=== PATIENT | male | born 1995 | race Caucasian/White ===

== ENCOUNTER 2021-12-26 09:00 | Outpatient (RCR) | payer OTHER, MEDICAID, SELFPAY ==
--- NOTE | 2021-11-03 09:44 | PT.OIE ---
Current Diagnoses Patellofemoral disorders, right knee (11/03/21) Patellofemoral disorders, left knee (11/03/21) Past Medical History (Last Updated 10/07/21 @ 21:12 by Laxmi Brito) Disorder of right temporomandibular joint History of tonsillectomy and adenoidectomy (~2001) Patellofemoral arthralgia of both knees Pilonidal cyst without infection Scoliosis (~2015) Tinnitus (~2016) [place] teeth removed (~2016) Past Surgical History (Last Updated 10/02/21 @ 20:17 by Laxmi Brito) Anesthesia History of tonsillectomy and adenoidectomy (~2001) [place] teeth removed (~2015) Visit Care Team Role Provider Type Wilbur Simons DO Attending Provider Physician Family Provider Primary Care Provider Referring Provider Specialty: Family Practice Address: [address] [place] [address] Email: Physical Therapy Initial Evaluation PT-OP-A Visit Information Start: 10/31/21 10:50 Freq: Status: Active Protocol: Document 11/03/21 13:00 AMB (Rec: 11/04/21 07:57 AMB [id number]) Out-Patient Physical Therapy Visit Information Visit Information Visit Type Treatment Note Visit Start Time 13:00 Visit Stop Time 13:45 Total Visit Minutes 45 Visit Number 1 PT-OP-B Current Condition Start: 10/31/21 10:50 Freq: Status: Active Protocol: Document 11/03/21 12:58 AMB (Rec: 11/03/21 13:50 AMB [id number]) Current Condition History of Current Condition Onset Date Last January Current Complaints Bilateral knee pain especially with sitting History of Current Condition Went on a camping trip last January and did a lot of walking, felt ok then, but when got home and was sitting the pain started. 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 Was hurting in the shins and knees, now just really knees over the knee caps. Pain with walking and sitting and driving. Has noticed popping with squatting and tries to avoid it. Denies pain with kneeling. Does have a history of scoliosis with S curve 14 and 18 degrees per pt report. Prior Functional Status Baseline Function- ADL's Independent Baseline Function- Mobility Independent Current Functional Impairments (Reported) Functional Limitations- ADL's Difficulty sitting, avoids squating/ lots of walking/ stairs due to pain Personal Factors Other Personal Factors That May Effect Scoliosis, lots of sitting in Therapy/Recovery home office PT-OP-C Subjective Start: 10/31/21 10:50 Freq: Status: Active Protocol: Document 11/03/21 13:00 AMB (Rec: 11/04/21 09:08 AMB [id number]) OP-PT Pain Assessment Comments Pain Comments 3-4/10 pain fairly constant, worst with sitting PT-OP-G Mobility & Gait Start: 10/31/21 10:50 Freq: Status: Active Protocol: Document 11/03/21 13:00 AMB (Rec: 11/04/21 09:08 AMB [id number]) OP Mobility Evaluation Functional Movements Squats fatigues quickly, cues for form PT-OP-K Range of Motion Start: 10/31/21 10:50 Freq: Status: Active Protocol: Document 11/03/21 13:00 AMB (Rec: 11/04/21 09:08 AMB [id number]) Knee Goniometric Range of Motion Knee Left Knee ROM WFL Yes Comments good AROM bilaterally PT-OP-L Special Tests Start: 10/31/21 10:50 Freq: Status: Active Protocol: Document 11/03/21 13:00 AMB (Rec: 11/04/21 09:08 AMB [id number]) Special Tests Knee Special Tests Patellar Grind Test Test Results - PT-OP-M Strength Start: 10/31/21 10:50 Freq: Status: Active Protocol: Document 11/03/21 13:00 AMB (Rec: 11/04/21 09:08 AMB [id number]) Hip Strength Hip Manual Muscle Testing Left Flexion (L2) 4+ Good+ Extension (S1) 4 Good Abduction 4+ Good+ Right Flexion (L2) 4+ Good+ Extension (S1) 4 Good Abduction 4+ Good+ Knee Strength Knee Manual Muscle Testing Right Flexion (S2) 5 Normal Extension (L3) 4+ Good+ Left Flexion (S2) 5 Normal Extension (L3) 4+ Good+ PT-OP-T Assessment and Plan Start: 10/31/21 10:50 Freq: Status: Active Protocol: Document 11/03/21 13:00 AMB (Rec: 11/04/21 09:41 AMB [id number]) Physical Therapy Assessment Evaluation Complexity Number of Personal Factors/Comorbidities 1-2 Number of Body Systems Impaired 4 or More Clinical Presentation at Evaluation Stable Impairments Impairments Activity Tolerance,Functional Activities,Pain,Strength Goals Two Impairment Activity tolerance Short Term Goal (STG) Rodney will sit at his desk with good ergonomics for 1 hour without knee pain. STG Duration 4 weeks Assisted Goal (LTG) Rodney will ascend and descend a flight of stairs without knee pain. LTG Duration 8 weeks One Impairment Pain Short Term Goal (STG) Rodney will perform a full squat without knee pain. STG Duration 4 weeks Assisted Goal (LTG) Rodney will be independent with a strengthening HEP that does not flare his pain. LTG Duration 8 weeks Assessment Summary Assessment Rodney attends physical therapy with bilateral knee pain centered over his patella. We spent a good amount of time discussing the ergonomic setup of his home office, considering that his worst pain is with sitting and he sits a lot for school. His range of motion was good, but he would benefit from quad and hip extensor strengthening, as well as instruction in a core stability program so that he can sit, squat, and hike without an increase in knee pain. Physical Therapy Plan Frequency and Duration Frequency of Treatment 2x/Week Duration of Treatment 8 weeks Plan of Care Start Date 11/03/21 Plan of Care End Date 12/30/21 Therapeutic Interventions Therapeutic Interventions Gait Training,Manual Therapy, Neuromuscular Re-education, Self-Care/Home Management,Soft Tissue Mobilization,Taping, Therapeutic Activities, Therapeutic Exercises Modalities Cold Pack/Ice Massage,Electric Stimulation,Hot Packs Next Visit Focus/Plan Next Note Type Treatment Note Next Visit Plan Work on squat form, hip abductor and quad strength
--- NOTE | 2021-11-03 16:00 | PT.OPPOC ---
Physical, Occupational & Speech Therapy At [facility] Current Diagnoses Patellofemoral disorders, right knee (11/03/21) Patellofemoral disorders, left knee (11/03/21) Visit Care Team Role Provider Type Wilbur Simons DO Attending Provider Physician Family Provider Primary Care Provider Referring Provider Specialty: Family Practice Address: [address] [place] [address], [facility] Email: Plan Of Care PT-OP-T Assessment and Plan Start: 10/31/21 10:50 Freq: Status: Active Protocol: Document 11/03/21 13:00 AMB (Rec: 11/04/21 09:41 AMB [id number]) Physical Therapy Assessment Evaluation Complexity Number of Personal Factors/Comorbidities 1-2 Number of Body Systems Impaired 4 or More Clinical Presentation at Evaluation Stable Impairments Impairments Activity Tolerance,Functional Activities,Pain,Strength Goals Two Impairment Activity tolerance Short Term Goal (STG) Rodney will sit at his desk with good ergonomics for 1 hour without knee pain. STG Duration 4 weeks Mcc Goal (LTG) Rodney will ascend and descend a flight of stairs without knee pain. LTG Duration 8 weeks One Impairment Pain Short Term Goal (STG) Rodney will perform a full squat without knee pain. STG Duration 4 weeks Traffic Control Supervisor Goal (LTG) Rodney will be independent with a strengthening HEP that does not flare his pain. LTG Duration 8 weeks Assessment Summary Assessment Rodney attends physical therapy with bilateral knee pain centered over his patella. We spent a good amount of time discussing the ergonomic setup of his home office, considering that his worst pain is with sitting and he sits a lot for school. His range of motion was good, but he would benefit from quad and hip extensor strengthening, as well as instruction in a core stability program so that he can sit, squat, and hike without an increase in knee pain. Physical Therapy Plan Frequency and Duration Frequency of Treatment 2x/Week Duration of Treatment 8 weeks Plan of Care Start Date 11/03/21 Plan of Care End Date 12/30/21 Therapeutic Interventions Therapeutic Interventions Gait Training,Manual Therapy, Neuromuscular Re-education, Self-Care/Home Management,Soft Tissue Mobilization,Taping, Therapeutic Activities, Therapeutic Exercises Modalities Cold Pack/Ice Massage,Electric Stimulation,Hot Packs Next Visit Focus/Plan Next Note Type Treatment Note Next Visit Plan Work on squat form, hip abductor and quad strength Plan of Care Dates Plan of Care Start Date 11/03/21 Plan of Care End Date 12/30/21 Electronically Signed by: Lynette Jane, PT 11/04/21 0945 Please Sign and Return: I have reviewed this Plan of Care and certify that the skilled therapy services above are required to meet the patient?s needs. Physician Signature Date Printed Name and Credentials Clinical Instructor Signature Printed Name and Credentials
--- NOTE | 2021-11-07 15:57 | PT.OTN ---
Current Diagnoses Patellofemoral disorders, right knee (11/07/21) Patellofemoral disorders, left knee (11/07/21) Physical Therapy Treatment Note PT-OP-A Visit Information Start: 10/31/21 10:50 Freq: Status: Active Protocol: Document 11/07/21 09:48 AMB (Rec: 11/07/21 10:33 AMB [id number]) Out-Patient Physical Therapy Visit Information Visit Information Visit Type Treatment Note Visit Start Time 09:45 Visit Stop Time 10:30 Total Visit Minutes 45 Visit Number 2 PT-OP-B Current Condition Start: 10/31/21 10:50 Freq: Status: Active Protocol: Document 11/03/21 12:58 AMB (Rec: 11/03/21 13:50 AMB [id number]) Current Condition History of Current Condition Onset Date Last January Current Complaints Bilateral knee pain especially with sitting History of Current Condition Went on a camping trip last January and did a lot of walking, felt ok then, but when got home and was sitting the pain started. 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 Was hurting in the shins and knees, now just really knees over the knee caps. Pain with walking and sitting and driving. Has noticed popping with squatting and tries to avoid it. Denies pain with kneeling. Does have a history of scoliosis with S curve 14 and 18 degrees per pt report. Prior Functional Status Baseline Function- ADL's Independent Baseline Function- Mobility Independent Current Functional Impairments (Reported) Functional Limitations- ADL's Difficulty sitting, avoids squating/ lots of walking/ stairs due to pain Personal Factors Other Personal Factors That May Effect Scoliosis, lots of sitting in Therapy/Recovery home office PT-OP-C Subjective Start: 10/31/21 10:50 Freq: Status: Active Protocol: Document 11/07/21 09:48 AMB (Rec: 11/07/21 10:33 AMB [id number]) OP-PT Subjective Patient Comments Patient Comments I've done exercises last 2 days, noticing pain with sitting, no pain with exercises. PT-OP-G Mobility & Gait Start: 10/31/21 10:50 Freq: Status: Active Protocol: Document 11/03/21 13:00 AMB (Rec: 11/04/21 09:08 AMB [id number]) OP Mobility Evaluation Functional Movements Squats fatigues quickly, cues for form PT-OP-K Range of Motion Start: 10/31/21 10:50 Freq: Status: Active Protocol: Document 11/03/21 13:00 AMB (Rec: 11/04/21 09:08 AMB [id number]) Knee Goniometric Range of Motion Knee Left Knee ROM WFL Yes Comments good AROM bilaterally PT-OP-L Special Tests Start: 10/31/21 10:50 Freq: Status: Active Protocol: Document 11/03/21 13:00 AMB (Rec: 11/04/21 09:08 AMB [id number]) Special Tests Knee Special Tests Patellar Grind Test Test Results - PT-OP-M Strength Start: 10/31/21 10:50 Freq: Status: Active Protocol: Document 11/03/21 13:00 AMB (Rec: 11/04/21 09:08 AMB [id number]) Hip Strength Hip Manual Muscle Testing Left Flexion (L2) 4+ Good+ Extension (S1) 4 Good Abduction 4+ Good+ Right Flexion (L2) 4+ Good+ Extension (S1) 4 Good Abduction 4+ Good+ Knee Strength Knee Manual Muscle Testing Right Flexion (S2) 5 Normal Extension (L3) 4+ Good+ Left Flexion (S2) 5 Normal Extension (L3) 4+ Good+ PT-OP-Q Treatments Start: 10/31/21 10:50 Freq: Status: Active Protocol: Document 11/07/21 09:48 AMB (Rec: 11/07/21 10:33 AMB [id number]) Cardio Equipment Recumbent Bicycle Duration (Minutes) 5 Resistance 5 Gym Equipment Shuttle Recovery Bilateral Squats Resistance 50 Shuttle Recovery Platform Stable Therapeutic Exercises Supine Exercises 1 Supine Exercise Name SLR cue TA Reps/Minutes 2x10 Comments challenging IT band stretch Reps/Minutes 30x2 Comments with band Standing Exercises 1 Standing Exercise Name wall squat/squat Comments vc form- small range Other Exercises 1 Other Exercise Name quadruped LE ext Reps/Minutes 2x10 Comments cue even pelvis Manual Therapy Treatment Joint Mobilizations 1 Joint patellofemoral Direction III Body Position Supine Taping 1 Body Location bilateral knees Treatment Focus 2 I strips from lateral pulling medial superior and distal to patella Type of Tape Kinesio Tape PT-OP-T Assessment and Plan Start: 10/31/21 10:50 Freq: Status: Active Protocol: Document 11/07/21 09:48 AMB (Rec: 11/07/21 10:33 CORY [id number]) Physical Therapy Assessment Assessment Summary Assessment Rodney did well with ther ex today, fatigues quickly. Will benefit from continued quad/ glute strengthening. Physical Therapy Plan Next Visit Focus/Plan Next Note Type Treatment Note Next Visit Plan Follow up on k tape, SLR, and quad hip ext
--- NOTE | 2021-11-11 14:20 | PT.OTN ---
Current Diagnoses Patellofemoral disorders, right knee (11/11/21) Patellofemoral disorders, left knee (11/11/21) Physical Therapy Treatment Note PT-OP-A Visit Information Start: 10/31/21 10:50 Freq: Status: Active Protocol: Document 11/11/21 09:00 AMB (Rec: 11/11/21 09:47 AMB [id number]) Out-Patient Physical Therapy Visit Information Visit Information Visit Type Treatment Note Visit Start Time 09:00 Visit Stop Time 09:45 Total Visit Minutes 45 Visit Number 3 PT-OP-B Current Condition Start: 10/31/21 10:50 Freq: Status: Active Protocol: Document 11/03/21 12:58 AMB (Rec: 11/03/21 13:50 AMB [id number]) Current Condition History of Current Condition Onset Date Last January Current Complaints Bilateral knee pain especially with sitting History of Current Condition Went on a camping trip last January and did a lot of walking, felt ok then, but when got home and was sitting the pain started. 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 Was hurting in the shins and knees, now just really knees over the knee caps. Pain with walking and sitting and driving. Has noticed popping with squatting and tries to avoid it. Denies pain with kneeling. Does have a history of scoliosis with S curve 14 and 18 degrees per pt report. Prior Functional Status Baseline Function- ADL's Independent Baseline Function- Mobility Independent Current Functional Impairments (Reported) Functional Limitations- ADL's Difficulty sitting, avoids squating/ lots of walking/ stairs due to pain Personal Factors Other Personal Factors That May Effect Scoliosis, lots of sitting in Therapy/Recovery home office PT-OP-C Subjective Start: 10/31/21 10:50 Freq: Status: Active Protocol: Document 11/11/21 09:00 AMB (Rec: 11/11/21 09:47 AMB [id number]) OP-PT Subjective Patient Comments Patient Comments Didn't have a chance to do exercises over the weekend, tape seemed to help but PT-OP-G Mobility & Gait Start: 10/31/21 10:50 Freq: Status: Active Protocol: Document 11/03/21 13:00 AMB (Rec: 11/04/21 09:08 AMB [id number]) OP Mobility Evaluation Functional Movements Squats fatigues quickly, cues for form PT-OP-K Range of Motion Start: 10/31/21 10:50 Freq: Status: Active Protocol: Document 11/03/21 13:00 AMB (Rec: 11/04/21 09:08 AMB [id number]) Knee Goniometric Range of Motion Knee Left Knee ROM WFL Yes Comments good AROM bilaterally PT-OP-L Special Tests Start: 10/31/21 10:50 Freq: Status: Active Protocol: Document 11/03/21 13:00 AMB (Rec: 11/04/21 09:08 AMB [id number]) Special Tests Knee Special Tests Patellar Grind Test Test Results - PT-OP-M Strength Start: 10/31/21 10:50 Freq: Status: Active Protocol: Document 11/03/21 13:00 AMB (Rec: 11/04/21 09:08 AMB [id number]) Hip Strength Hip Manual Muscle Testing Left Flexion (L2) 4+ Good+ Extension (S1) 4 Good Abduction 4+ Good+ Right Flexion (L2) 4+ Good+ Extension (S1) 4 Good Abduction 4+ Good+ Knee Strength Knee Manual Muscle Testing Right Flexion (S2) 5 Normal Extension (L3) 4+ Good+ Left Flexion (S2) 5 Normal Extension (L3) 4+ Good+ PT-OP-Q Treatments Start: 10/31/21 10:50 Freq: Status: Active Protocol: Document 11/11/21 09:00 AMB (Rec: 11/11/21 09:47 AMB [id number]) Cardio Equipment Bicycle (Upright) Duration (Minutes) 7 Resistance 4 Seat Position 8 Therapeutic Exercises Supine Exercises november Supine Exercise Name 90-90 with TA Comments pt felt popping in R hip 1 Supine Exercise Name SLR cue TA Reps/Minutes 2x10 Comments challenging IT band stretch Reps/Minutes 30x2 Comments with band Sidelying Exercises 1 Sidelying Exercise Name hip abductor SLR Reps/Minutes 2x10 Standing Exercises 2 Standing Exercise Name hip flexor stretch Comments hard for pt to feel 1 Standing Exercise Name wall squat/squat Reps/Minutes 15x3 Comments vc form- small range Manual Therapy Treatment Other Other Manual Treatments rolling with foam roll and rolling pin on IT band PT-OP-T Assessment and Plan Start: 10/31/21 10:50 Freq: Status: Active Protocol: Document 11/11/21 09:00 AMB (Rec: 11/11/21 09:47 [facility] [id number]) Physical Therapy Assessment Goals Two Impairment Activity tolerance Short Term Goal (STG) Rodney will sit at his desk with good ergonomics for 1 hour without knee pain. STG Duration 4 weeks Detention Goal (LTG) Rodney will ascend and descend a flight of stairs without knee pain. LTG Duration 8 weeks One Impairment Pain Short Term Goal (STG) Rodney will perform a full squat without knee pain. STG Duration 4 weeks Ocular Care Aide Goal (LTG) Rodney will be independent with a strengthening HEP that does not flare his pain. LTG Duration 8 weeks Assessment Summary Assessment Will not continue with K tape per pt's request due to pain with removal of tape re hairy legs. Will continue to instruct in HEP with focusing on hip/knee strengthening with IT band stretching/rolling. Physical Therapy Plan Next Visit Focus/Plan Next Note Type Treatment Note Next Visit Plan Follow up on tolerance to HEP, progress quad/ hip abductor and extensor strengthening as tolerated.
--- NOTE | 2021-11-14 10:31 | PT.OTN ---
Current Diagnoses Patellofemoral disorders, right knee (11/14/21) Patellofemoral disorders, left knee (11/14/21) Physical Therapy Treatment Note PT-OP-A Visit Information Start: 10/31/21 10:50 Freq: Status: Active Protocol: Document 11/14/21 09:50 [place] (Rec: 11/14/21 10:31 MA [id number]) Out-Patient Physical Therapy Visit Information Visit Information Visit Type Treatment Note Visit Start Time 09:50 Visit Stop Time 10:30 Total Visit Minutes 40 Visit Number 4 Number of MILITARY SCIENCE TEACHER Visits 1 PT-OP-B Current Condition Start: 10/31/21 10:50 Freq: Status: Active Protocol: Document 11/03/21 12:58 AMB (Rec: 11/03/21 13:50 AMB [id number]) Current Condition History of Current Condition Onset Date Last January Current Complaints Bilateral knee pain especially with sitting History of Current Condition Went on a camping trip last January and did a lot of walking, felt ok then, but when got home and was sitting the pain started. 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 Was hurting in the shins and knees, now just really knees over the knee caps. Pain with walking and sitting and driving. Has noticed popping with squatting and tries to avoid it. Denies pain with kneeling. Does have a history of scoliosis with S curve 14 and 18 degrees per pt report. Prior Functional Status Baseline Function- ADL's Independent Baseline Function- Mobility Independent Current Functional Impairments (Reported) Functional Limitations- ADL's Difficulty sitting, avoids squating/ lots of walking/ stairs due to pain Personal Factors Other Personal Factors That May Effect Scoliosis, lots of sitting in Therapy/Recovery home office PT-OP-C Subjective Start: 10/31/21 10:50 Freq: Status: Active Protocol: Document 11/14/21 09:50 MA (Rec: 11/14/21 10:31 MA [id number]) OP-PT Subjective Patient Comments Patient Comments Pt feels his knees have improved since starting his HEP. Patient Reported Progress Improving PT-OP-G Mobility & Gait Start: 10/31/21 10:50 Freq: Status: Active Protocol: Document 11/03/21 13:00 AMB (Rec: 11/04/21 09:08 AMB [id number]) OP Mobility Evaluation Functional Movements Squats fatigues quickly, cues for form PT-OP-K Range of Motion Start: 10/31/21 10:50 Freq: Status: Active Protocol: Document 11/03/21 13:00 AMB (Rec: 11/04/21 09:08 AMB [id number]) Knee Goniometric Range of Motion Knee Left Knee ROM WFL Yes Comments good AROM bilaterally PT-OP-L Special Tests Start: 10/31/21 10:50 Freq: Status: Active Protocol: Document 11/03/21 13:00 AMB (Rec: 11/04/21 09:08 AMB [id number]) Special Tests Knee Special Tests Patellar Grind Test Test Results - PT-OP-M Strength Start: 10/31/21 10:50 Freq: Status: Active Protocol: Document 11/03/21 13:00 AMB (Rec: 11/04/21 09:08 AMB [id number]) Hip Strength Hip Manual Muscle Testing Left Flexion (L2) 4+ Good+ Extension (S1) 4 Good Abduction 4+ Good+ Right Flexion (L2) 4+ Good+ Extension (S1) 4 Good Abduction 4+ Good+ Knee Strength Knee Manual Muscle Testing Right Flexion (S2) 5 Normal Extension (L3) 4+ Good+ Left Flexion (S2) 5 Normal Extension (L3) 4+ Good+ PT-OP-Q Treatments Start: 10/31/21 10:50 Freq: Status: Active Protocol: Document 11/14/21 09:50 MA (Rec: 11/14/21 10:31 MA [id number]) Cardio Equipment Bicycle (Upright) Duration (Minutes) 7 Resistance 4 Seat Position 8 Therapeutic Exercises Supine Exercises 1 Supine Exercise Name SLR cue TA Reps/Minutes 2x10 Comments challenging IT band stretch Reps/Minutes 30x2 Comments with band Standing Exercises 3 Standing Exercise Name 1. hip abd 2. hip ext Side bilateral Resistance red loop Reps/Minutes 2x10 ea 2 Standing Exercise Name hip flexor stretch- 1. lunge stretch 2. pulling foot to glute Comments hard for pt to feel 1 Standing Exercise Name squats holding ballet bar Reps/Minutes 15x3 Comments vc form- small range Other Exercises Foam Roller Other Exercise Name 1. Quads 2. ITB 3. calves 4. HS Side bilateral Equipment Used foam roller Reps/Minutes 5' 1 Other Exercise Name quadruped LE ext Reps/Minutes 2x10 Comments cue even pelvis PT-OP-T Assessment and Plan Start: 10/31/21 10:50 Freq: Status: Active Protocol: Document 11/14/21 09:50 MA (Rec: 11/14/21 10:31 MA [id number]) Physical Therapy Assessment Goals Two Impairment Activity tolerance Short Term Goal (STG) Rodney will sit at his desk with good ergonomics for 1 hour without knee pain. STG Duration 4 weeks Half-Way Goal (LTG) Rodney will ascend and descend a flight of stairs without knee pain. LTG Duration 8 weeks One Impairment Pain Short Term Goal (STG) Rodney will perform a full squat without knee pain. STG Duration 4 weeks Half-Way Goal (LTG) Rodney will be independent with a strengthening HEP that does not flare his pain. LTG Duration 8 weeks Assessment Summary Assessment Progressed to standing resisted exercises this session for strengthening LEs/ hips bilaterally. Pt required minor cues to avoid ER LEs during standing hip extension. Added to HEP foam rolling ITB and quads bilaterally and a standing quad stretch. Physical Therapy Plan Frequency and Duration Frequency of Treatment 2x/Week Duration of Treatment 8 weeks Plan of Care Start Date 11/03/21 Plan of Care End Date 12/30/21 Therapeutic Interventions Therapeutic Interventions Gait Training,Manual Therapy, Neuromuscular Re-education, Self-Care/Home Management,Soft Tissue Mobilization,Taping, Therapeutic Activities, Therapeutic Exercises Modalities Cold Pack/Ice Massage,Electric Stimulation,Hot Packs Next Visit Focus/Plan Next Note Type Treatment Note Next Visit Plan Perform more standing resisted quad/ hip abductor and extensor strengthening as tolerated.
--- NOTE | 2021-11-21 11:19 | PT.OTN ---
Current Diagnoses Patellofemoral disorders, right knee (11/21/21) Patellofemoral disorders, left knee (11/21/21) Physical Therapy Treatment Note PT-OP-A Visit Information Start: 10/31/21 10:50 Freq: Status: Active Protocol: Document 11/21/21 10:22 MA (Rec: 11/21/21 11:19 MA [id number]) Out-Patient Physical Therapy Visit Information Visit Information Visit Type Treatment Note Visit Start Time 10:30 Visit Stop Time 11:12 Total Visit Minutes 42 Visit Number 5 Number of CUPOLA MELTER HELPER Visits 2 PT-OP-B Current Condition Start: 10/31/21 10:50 Freq: Status: Active Protocol: Document 11/03/21 12:58 AMB (Rec: 11/03/21 13:50 AMB [id number]) Current Condition History of Current Condition Onset Date Last January Current Complaints Bilateral knee pain especially with sitting History of Current Condition Went on a camping trip last January and did a lot of walking, felt ok then, but when got home and was sitting the pain started. 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 Was hurting in the shins and knees, now just really knees over the knee caps. Pain with walking and sitting and driving. Has noticed popping with squatting and tries to avoid it. Denies pain with kneeling. Does have a history of scoliosis with S curve 14 and 18 degrees per pt report. Prior Functional Status Baseline Function- ADL's Independent Baseline Function- Mobility Independent Current Functional Impairments (Reported) Functional Limitations- ADL's Difficulty sitting, avoids squating/ lots of walking/ stairs due to pain Personal Factors Other Personal Factors That May Effect Scoliosis, lots of sitting in Therapy/Recovery home office PT-OP-C Subjective Start: 10/31/21 10:50 Freq: Status: Active Protocol: Document 11/21/21 10:22 MA (Rec: 11/21/21 11:19 MA [id number]) OP-PT Subjective Patient Comments Patient Comments My knee feels fine so far today but it did hurt yesterday. PT-OP-G Mobility & Gait Start: 10/31/21 10:50 Freq: Status: Active Protocol: Document 11/03/21 13:00 AMB (Rec: 11/04/21 09:08 AMB [id number]) OP Mobility Evaluation Functional Movements Squats fatigues quickly, cues for form PT-OP-K Range of Motion Start: 10/31/21 10:50 Freq: Status: Active Protocol: Document 11/03/21 13:00 AMB (Rec: 11/04/21 09:08 AMB [id number]) Knee Goniometric Range of Motion Knee Left Knee ROM WFL Yes Comments good AROM bilaterally PT-OP-L Special Tests Start: 10/31/21 10:50 Freq: Status: Active Protocol: Document 11/03/21 13:00 AMB (Rec: 11/04/21 09:08 AMB [id number]) Special Tests Knee Special Tests Patellar Grind Test Test Results - PT-OP-M Strength Start: 10/31/21 10:50 Freq: Status: Active Protocol: Document 11/03/21 13:00 AMB (Rec: 11/04/21 09:08 AMB [id number]) Hip Strength Hip Manual Muscle Testing Left Flexion (L2) 4+ Good+ Extension (S1) 4 Good Abduction 4+ Good+ Right Flexion (L2) 4+ Good+ Extension (S1) 4 Good Abduction 4+ Good+ Knee Strength Knee Manual Muscle Testing Right Flexion (S2) 5 Normal Extension (L3) 4+ Good+ Left Flexion (S2) 5 Normal Extension (L3) 4+ Good+ PT-OP-Q Treatments Start: 10/31/21 10:50 Freq: Status: Active Protocol: Document 11/21/21 10:22 MA (Rec: 11/21/21 11:19 MA [id number]) Cardio Equipment Bicycle (Upright) Duration (Minutes) 7 Resistance 5 Seat Position 8 Therapeutic Exercises Supine Exercises Rodri stretch Side bilateral Reps/Minutes x1' ea Comments added to HEP IT band stretch Reps/Minutes 30x2 Comments figure four pulling knee to opp shd Standing Exercises 3 Standing Exercise Name 1. hip abd 2. hip ext Side bilateral Resistance lvl 2 TB Reps/Minutes 2x15 ea Comments added to HEP 2 Standing Exercise Name hip flexor stretch- 1. lunge stretch 2. pulling foot to glute Comments hard for pt to feel 1 Standing Exercise Name squats holding ballet bar Reps/Minutes 5x Comments d/c today due to R knee pain Other Exercises Foam Roller Other Exercise Name 1. Quads 2. ITB 3. calves 4. HS Side bilateral Equipment Used foam roller Reps/Minutes 8' PT-OP-T Assessment and Plan Start: 10/31/21 10:50 Freq: Status: Active Protocol: Document 11/21/21 10:22 MA (Rec: 11/21/21 11:19 MA [id number]) Physical Therapy Assessment Goals Two Impairment Activity tolerance Short Term Goal (STG) Rodney will sit at his desk with good ergonomics for 1 hour without knee pain. STG Duration 4 weeks Prototype Machine Operator Goal (LTG) Rodney will ascend and descend a flight of stairs without knee pain. LTG Duration 8 weeks One Impairment Pain Short Term Goal (STG) Rodney will perform a full squat without knee pain. STG Duration 4 weeks Senior Living Goal (LTG) Rodney will be independent with a strengthening HEP that does not flare his pain. LTG Duration 8 weeks Assessment Summary Assessment Pt improves form during standing hip ext and abd exercises. Added both to HEP with levl 2 Theraband along with rodri stretch. Pt had R knee pain during squats this session so d/c and will continue to work on squat form next session trying wall squats or squats on leg press. Physical Therapy Plan Frequency and Duration Frequency of Treatment 2x/Week Duration of Treatment 8 weeks Plan of Care Start Date 11/03/21 Plan of Care End Date 12/30/21 Therapeutic Interventions Therapeutic Interventions Gait Training,Manual Therapy, Neuromuscular Re-education, Self-Care/Home Management,Soft Tissue Mobilization,Taping, Therapeutic Activities, Therapeutic Exercises Modalities Cold Pack/Ice Massage,Electric Stimulation,Hot Packs Next Visit Focus/Plan Next Note Type Treatment Note Next Visit Plan Review new HEP: standing hip ext, abd, and rodri stretch. Try wall squats vs squats at bar or shuttle recovery
--- NOTE | 2021-11-28 17:18 | PT.OTN ---
Current Diagnoses Patellofemoral disorders, right knee (11/28/21) Patellofemoral disorders, left knee (11/28/21) Physical Therapy Treatment Note PT-OP-A Visit Information Start: 10/31/21 10:50 Freq: Status: Active Protocol: Document 11/28/21 14:36 MA (Rec: 11/28/21 15:16 MA [id number]) Out-Patient Physical Therapy Visit Information Visit Information Visit Type Treatment Note Visit Start Time 14:35 Visit Stop Time 15:15 Total Visit Minutes 40 Visit Number 6 Number of MARKET RESEARCH EXECUTIVE Visits 3 PT-OP-B Current Condition Start: 10/31/21 10:50 Freq: Status: Active Protocol: Document 11/03/21 12:58 AMB (Rec: 11/03/21 13:50 AMB [id number]) Current Condition History of Current Condition Onset Date Last January Current Complaints Bilateral knee pain especially with sitting History of Current Condition Went on a camping trip last January and did a lot of walking, felt ok then, but when got home and was sitting the pain started. 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 Was hurting in the shins and knees, now just really knees over the knee caps. Pain with walking and sitting and driving. Has noticed popping with squatting and tries to avoid it. Denies pain with kneeling. Does have a history of scoliosis with S curve 14 and 18 degrees per pt report. Prior Functional Status Baseline Function- ADL's Independent Baseline Function- Mobility Independent Current Functional Impairments (Reported) Functional Limitations- ADL's Difficulty sitting, avoids squating/ lots of walking/ stairs due to pain Personal Factors Other Personal Factors That May Effect Scoliosis, lots of sitting in Therapy/Recovery home office PT-OP-C Subjective Start: 10/31/21 10:50 Freq: Status: Active Protocol: Document 11/28/21 14:36 MA (Rec: 11/28/21 15:16 MA [id number]) OP-PT Subjective Patient Comments Patient Comments My knee was hurting on the way here but it feels fine now PT-OP-G Mobility & Gait Start: 10/31/21 10:50 Freq: Status: Active Protocol: Document 11/03/21 13:00 AMB (Rec: 11/04/21 09:08 AMB [id number]) OP Mobility Evaluation Functional Movements Squats fatigues quickly, cues for form PT-OP-K Range of Motion Start: 10/31/21 10:50 Freq: Status: Active Protocol: Document 11/03/21 13:00 AMB (Rec: 11/04/21 09:08 AMB [id number]) Knee Goniometric Range of Motion Knee Left Knee ROM WFL Yes Comments good AROM bilaterally PT-OP-L Special Tests Start: 10/31/21 10:50 Freq: Status: Active Protocol: Document 11/03/21 13:00 AMB (Rec: 11/04/21 09:08 AMB [id number]) Special Tests Knee Special Tests Patellar Grind Test Test Results - PT-OP-M Strength Start: 10/31/21 10:50 Freq: Status: Active Protocol: Document 11/03/21 13:00 AMB (Rec: 11/04/21 09:08 AMB [id number]) Hip Strength Hip Manual Muscle Testing Left Flexion (L2) 4+ Good+ Extension (S1) 4 Good Abduction 4+ Good+ Right Flexion (L2) 4+ Good+ Extension (S1) 4 Good Abduction 4+ Good+ Knee Strength Knee Manual Muscle Testing Right Flexion (S2) 5 Normal Extension (L3) 4+ Good+ Left Flexion (S2) 5 Normal Extension (L3) 4+ Good+ PT-OP-Q Treatments Start: 10/31/21 10:50 Freq: Status: Active Protocol: Document 11/28/21 14:36 MA (Rec: 11/28/21 15:16 MA [id number]) Cardio Equipment Bicycle (Upright) Duration (Minutes) 7 Resistance 5 Seat Position 8 Gym Equipment Shuttle Recovery Bilateral Squats Resistance 75# Shuttle Recovery Platform Stable Reps/Time 2x20 Therapeutic Exercises Supine Exercises Rodri stretch Side bilateral Reps/Minutes x1' ea Comments added to HEP IT band stretch Reps/Minutes 30x2 Comments figure four pulling knee to opp shd Standing Exercises 3 Standing Exercise Name 1. hip abd 2. hip ext Side bilateral Resistance lvl 2 TB Reps/Minutes 2x10 ea Comments added to HEP 2 Standing Exercise Name hip flexor stretch- 1. lunge stretch 2. pulling foot to glute Comments hard for pt to feel 1 Standing Exercise Name wall squats with ball b/w knees Reps/Minutes x10 PT-OP-T Assessment and Plan Start: 10/31/21 10:50 Freq: Status: Active Protocol: Document 11/28/21 14:36 MA (Rec: 11/28/21 15:16 MA [id number]) Physical Therapy Assessment Goals Two Impairment Activity tolerance Short Term Goal (STG) Rodney will sit at his desk with good ergonomics for 1 hour without knee pain. STG Duration 4 weeks Jail Goal (LTG) Rodney will ascend and descend a flight of stairs without knee pain. LTG Duration 8 weeks One Impairment Pain Short Term Goal (STG) Rodney will perform a full squat without knee pain. STG Duration 4 weeks Jail Goal (LTG) Rodney will be independent with a strengthening HEP that does not flare his pain. LTG Duration 8 weeks Assessment Summary Assessment Pt admits he has not tried new HEP since last visit. Reviewed HEP with pt only requiring minor cues to avoid ER during R hip extension. Pt has R knee pain during wall squats and continues to have minor pain on supine leg press . Ball is placed between pt's knees and pt has no pain when using ball to assist with LE tracking. Returned to wall squats with pt having no pain when ball is used between knees. Pt has slight knee valgas on R side and turns R foot out. Did quick assessment of R ankle at end of session and noticed pt has decreased ROM. PT will further assess ankle mobility next session as possible contributer to pt's knee pain. Physical Therapy Plan Frequency and Duration Frequency of Treatment 2x/Week Duration of Treatment 8 weeks Plan of Care Start Date 11/03/21 Plan of Care End Date 12/30/21 Therapeutic Interventions Therapeutic Interventions Gait Training,Manual Therapy, Neuromuscular Re-education, Self-Care/Home Management,Soft Tissue Mobilization,Taping, Therapeutic Activities, Therapeutic Exercises Modalities Cold Pack/Ice Massage,Electric Stimulation,Hot Packs Next Visit Focus/Plan Next Note Type Treatment Note Next Visit Plan ankle mobs to improve knee pain, cont wall squats with ball b/w knees
--- NOTE | 2021-12-09 12:57 | PT.OTN ---
Current Diagnoses Patellofemoral disorders, right knee (12/09/21) Patellofemoral disorders, left knee (12/09/21) Physical Therapy Treatment Note PT-OP-A Visit Information Start: 10/31/21 10:50 Freq: Status: Active Protocol: Document 12/09/21 09:52 AMB (Rec: 12/09/21 10:57 AMB [id number]) Out-Patient Physical Therapy Visit Information Visit Information Visit Type Treatment Note Visit Start Time 09:50 Visit Stop Time 10:30 Total Visit Minutes 40 Visit Number 7 PT-OP-B Current Condition Start: 10/31/21 10:50 Freq: Status: Active Protocol: Document 11/03/21 12:58 AMB (Rec: 11/03/21 13:50 AMB [id number]) Current Condition History of Current Condition Onset Date Last January Current Complaints Bilateral knee pain especially with sitting History of Current Condition Went on a camping trip last January and did a lot of walking, felt ok then, but when got home and was sitting the pain started. 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 Was hurting in the shins and knees, now just really knees over the knee caps. Pain with walking and sitting and driving. Has noticed popping with squatting and tries to avoid it. Denies pain with kneeling. Does have a history of scoliosis with S curve 14 and 18 degrees per pt report. Prior Functional Status Baseline Function- ADL's Independent Baseline Function- Mobility Independent Current Functional Impairments (Reported) Functional Limitations- ADL's Difficulty sitting, avoids squating/ lots of walking/ stairs due to pain Personal Factors Other Personal Factors That May Effect Scoliosis, lots of sitting in Therapy/Recovery home office PT-OP-C Subjective Start: 10/31/21 10:50 Freq: Status: Active Protocol: Document 12/09/21 09:52 AMB (Rec: 12/09/21 10:57 AMB [id number]) OP-PT Subjective Patient Comments Patient Comments Overall knee is feeling better , but wondering about toe pain , also noticing some heel pain first thing in the morning. PT-OP-G Mobility & Gait Start: 10/31/21 10:50 Freq: Status: Active Protocol: Document 11/03/21 13:00 AMB (Rec: 11/04/21 09:08 AMB [id number]) OP Mobility Evaluation Functional Movements Squats fatigues quickly, cues for form PT-OP-K Range of Motion Start: 10/31/21 10:50 Freq: Status: Active Protocol: Document 11/03/21 13:00 AMB (Rec: 11/04/21 09:08 AMB [id number]) Knee Goniometric Range of Motion Knee Left Knee ROM WFL Yes Comments good AROM bilaterally PT-OP-L Special Tests Start: 10/31/21 10:50 Freq: Status: Active Protocol: Document 11/03/21 13:00 AMB (Rec: 11/04/21 09:08 AMB [id number]) Special Tests Knee Special Tests Patellar Grind Test Test Results - PT-OP-M Strength Start: 10/31/21 10:50 Freq: Status: Active Protocol: Document 11/03/21 13:00 AMB (Rec: 11/04/21 09:08 AMB [id number]) Hip Strength Hip Manual Muscle Testing Left Flexion (L2) 4+ Good+ Extension (S1) 4 Good Abduction 4+ Good+ Right Flexion (L2) 4+ Good+ Extension (S1) 4 Good Abduction 4+ Good+ Knee Strength Knee Manual Muscle Testing Right Flexion (S2) 5 Normal Extension (L3) 4+ Good+ Left Flexion (S2) 5 Normal Extension (L3) 4+ Good+ PT-OP-Q Treatments Start: 10/31/21 10:50 Freq: Status: Active Protocol: Document 12/09/21 09:45 AMB (Rec: 12/09/21 12:57 AMB [id number]) Therapeutic Exercises Supine Exercises Rodri stretch Side bilateral Reps/Minutes x1' ea Comments added to HEP Standing Exercises 5 Standing Exercise Name calf stretch Reps/Minutes 30x4 Comments on stair, on MAINOR 4 Standing Exercise Name heel raise Reps/Minutes 2x10 Comments on step sit to stand Reps/Minutes 2x10 Comments barefoot vs shoes 2 Standing Exercise Name hip flexor stretch- 1. lunge stretch 2. pulling foot to glute 1 Standing Exercise Name wall squats with ball b/w knees Reps/Minutes x10 PT-OP-T Assessment and Plan Start: 10/31/21 10:50 Freq: Status: Active Protocol: Document 12/09/21 09:45 AMB (Rec: 12/09/21 12:57 AMB [id number]) Physical Therapy Assessment Goals Two Impairment Activity tolerance Short Term Goal (STG) Rodney will sit at his desk with good ergonomics for 1 hour without knee pain. STG Duration 4 weeks Penitentiary Goal (LTG) Rodney will ascend and descend a flight of stairs without knee pain. LTG Duration 8 weeks One Impairment Pain Short Term Goal (STG) Rodney will perform a full squat without knee pain. STG Duration 4 weeks Penitentiary Goal (LTG) Rodney will be independent with a strengthening HEP that does not flare his pain. LTG Duration 8 weeks Assessment Summary Assessment Rodney does have signficant tightness in his right ankle, that could be impacting his knee, so did instruct in ankle stretching and strengthening today, especially considering his new onset toe and heel pain. He had pain great toe flexion. Overall his knee pain continues to decrease, but he has not returned to hiking. He was able to walk around on [place] to go sledding without knee pain. Pt does have very flat feet so encouaged to wear shoes when doing weightbearing exercises. Physical Therapy Plan Next Visit Focus/Plan Next Note Type Treatment Note Next Visit Plan Ankle mobility and hip/knee stability
--- NOTE | 2021-12-12 12:54 | PT.OTN ---
Current Diagnoses Patellofemoral disorders, right knee (12/12/21) Patellofemoral disorders, left knee (12/12/21) Physical Therapy Treatment Note PT-OP-A Visit Information Start: 10/31/21 10:50 Freq: Status: Active Protocol: Document 12/12/21 09:03 AMB (Rec: 12/12/21 09:49 AMB [id number]) Out-Patient Physical Therapy Visit Information Visit Information Visit Type Treatment Note Visit Start Time 09:00 Visit Stop Time 09:45 Total Visit Minutes 45 Visit Number 8 PT-OP-B Current Condition Start: 10/31/21 10:50 Freq: Status: Active Protocol: Document 11/03/21 12:58 AMB (Rec: 11/03/21 13:50 AMB [id number]) Current Condition History of Current Condition Onset Date Last January Current Complaints Bilateral knee pain especially with sitting History of Current Condition Went on a camping trip last January and did a lot of walking, felt ok then, but when got home and was sitting the pain started. 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 Was hurting in the shins and knees, now just really knees over the knee caps. Pain with walking and sitting and driving. Has noticed popping with squatting and tries to avoid it. Denies pain with kneeling. Does have a history of scoliosis with S curve 14 and 18 degrees per pt report. Prior Functional Status Baseline Function- ADL's Independent Baseline Function- Mobility Independent Current Functional Impairments (Reported) Functional Limitations- ADL's Difficulty sitting, avoids squating/ lots of walking/ stairs due to pain Personal Factors Other Personal Factors That May Effect Scoliosis, lots of sitting in Therapy/Recovery home office PT-OP-C Subjective Start: 10/31/21 10:50 Freq: Status: Active Protocol: Document 12/12/21 09:03 AMB (Rec: 12/12/21 09:49 AMB [id number]) OP-PT Subjective Patient Comments Patient Comments Overall feeling better, interested in how to get back to gym routine without flaring pain. PT-OP-G Mobility & Gait Start: 10/31/21 10:50 Freq: Status: Active Protocol: Document 11/03/21 13:00 AMB (Rec: 11/04/21 09:08 AMB [id number]) OP Mobility Evaluation Functional Movements Squats fatigues quickly, cues for form PT-OP-K Range of Motion Start: 10/31/21 10:50 Freq: Status: Active Protocol: Document 11/03/21 13:00 AMB (Rec: 11/04/21 09:08 AMB [id number]) Knee Goniometric Range of Motion Knee Left Knee ROM WFL Yes Comments good AROM bilaterally PT-OP-L Special Tests Start: 10/31/21 10:50 Freq: Status: Active Protocol: Document 11/03/21 13:00 AMB (Rec: 11/04/21 09:08 AMB [id number]) Special Tests Knee Special Tests Patellar Grind Test Test Results - PT-OP-M Strength Start: 10/31/21 10:50 Freq: Status: Active Protocol: Document 11/03/21 13:00 AMB (Rec: 11/04/21 09:08 AMB [id number]) Hip Strength Hip Manual Muscle Testing Left Flexion (L2) 4+ Good+ Extension (S1) 4 Good Abduction 4+ Good+ Right Flexion (L2) 4+ Good+ Extension (S1) 4 Good Abduction 4+ Good+ Knee Strength Knee Manual Muscle Testing Right Flexion (S2) 5 Normal Extension (L3) 4+ Good+ Left Flexion (S2) 5 Normal Extension (L3) 4+ Good+ PT-OP-Q Treatments Start: 10/31/21 10:50 Freq: Status: Active Protocol: Document 12/12/21 09:03 AMB (Rec: 12/12/21 09:49 AMB [id number]) Cardio Equipment Bicycle (Upright) Duration (Minutes) 7 Resistance 5 Seat Position 8 Gym Equipment Cable Column (Body Solid) Leg Extension Resistance 40 Reps/Time 2x10 Leg Curl Resistance 40 Reps/Time 2x10 Hip Abduction Resistance 30 Reps/Time 2x10 Therapeutic Exercises Standing Exercises 5 Standing Exercise Name calf stretch Reps/Minutes 30x4 Comments on stair, on MAINOR 4 Standing Exercise Name heel raise Reps/Minutes 2x10 Comments on step 1 Standing Exercise Name wall squats with ball b/w knees Reps/Minutes x10 PT-OP-T Assessment and Plan Start: 10/31/21 10:50 Freq: Status: Active Protocol: Document 12/12/21 09:03 AMB (Rec: 12/12/21 09:49 AMB [id number]) Physical Therapy Assessment Goals Two Impairment Activity tolerance Short Term Goal (STG) Rodney will sit at his desk with good ergonomics for 1 hour without knee pain. STG Duration 4 weeks Conservation Of Resources Commissioner Goal (LTG) Rodney will ascend and descend a flight of stairs without knee pain. LTG Duration 8 weeks One Impairment Pain Short Term Goal (STG) Rodney will perform a full squat without knee pain. STG Duration 4 weeks Conservation Of Resources Commissioner Goal (LTG) Rodney will be independent with a strengthening HEP that does not flare his pain. LTG Duration 8 weeks Assessment Summary Assessment Rodney reports he has been doing his exercises and ankle stretching. He has some questions about returning to gym workouts so we went through machines which in the moment did not irritate his knee. Encouraged him to continue with calf stretching. Physical Therapy Plan Next Visit Focus/Plan Next Note Type Treatment Note Next Visit Plan Ankle mobility and hip/knee stability
--- NOTE | 2021-12-26 10:18 | PT.OTN ---
Current Diagnoses Patellofemoral disorders, right knee (12/26/21) Patellofemoral disorders, left knee (12/26/21) Physical Therapy Treatment Note PT-OP-A Visit Information Start: 10/31/21 10:50 Freq: Status: Active Protocol: Document 12/26/21 09:06 AMB (Rec: 12/26/21 10:17 AMB [id number]) Out-Patient Physical Therapy Visit Information Visit Information Visit Type Treatment Note Visit Start Time 09:00 Visit Stop Time 09:45 Total Visit Minutes 45 Visit Number 9 PT-OP-B Current Condition Start: 10/31/21 10:50 Freq: Status: Active Protocol: Document 11/03/21 12:58 AMB (Rec: 11/03/21 13:50 AMB [id number]) Current Condition History of Current Condition Onset Date Last January Current Complaints Bilateral knee pain especially with sitting History of Current Condition Went on a camping trip last January and did a lot of walking, felt ok then, but when got home and was sitting the pain started. Sits a lot is going to college [employer] for [employer]. Was hurting in the shins and knees, now just really knees over the knee caps. Pain with walking and sitting and driving. Has noticed popping with squatting and tries to avoid it. Denies pain with kneeling. Does have a history of scoliosis with S curve 14 and 18 degrees per pt report. Prior Functional Status Baseline Function- ADL's Independent Baseline Function- Mobility Independent Current Functional Impairments (Reported) Functional Limitations- ADL's Difficulty sitting, avoids squating/ lots of walking/ stairs due to pain Personal Factors Other Personal Factors That May Effect Scoliosis, lots of sitting in Therapy/Recovery home office PT-OP-C Subjective Start: 10/31/21 10:50 Freq: Status: Active Protocol: Document 12/26/21 09:06 AMB (Rec: 12/26/21 10:17 AMB [id number]) OP-PT Subjective Patient Comments Patient Comments Rodney reports he has been a little sick with a sinus infection so that is why he didn't make it in to PT for the past couple weeks. He is feeling better now. PT-OP-G Mobility & Gait Start: 10/31/21 10:50 Freq: Status: Active Protocol: Document 11/03/21 13:00 AMB (Rec: 11/04/21 09:08 AMB [id number]) OP Mobility Evaluation Functional Movements Squats fatigues quickly, cues for form PT-OP-K Range of Motion Start: 10/31/21 10:50 Freq: Status: Active Protocol: Document 11/03/21 13:00 AMB (Rec: 11/04/21 09:08 AMB [id number]) Knee Goniometric Range of Motion Knee Left Knee ROM WFL Yes Comments good AROM bilaterally PT-OP-L Special Tests Start: 10/31/21 10:50 Freq: Status: Active Protocol: Document 11/03/21 13:00 AMB (Rec: 11/04/21 09:08 AMB [id number]) Special Tests Knee Special Tests Patellar Grind Test Test Results - PT-OP-M Strength Start: 10/31/21 10:50 Freq: Status: Active Protocol: Document 11/03/21 13:00 AMB (Rec: 11/04/21 09:08 AMB [id number]) Hip Strength Hip Manual Muscle Testing Left Flexion (L2) 4+ Good+ Extension (S1) 4 Good Abduction 4+ Good+ Right Flexion (L2) 4+ Good+ Extension (S1) 4 Good Abduction 4+ Good+ Knee Strength Knee Manual Muscle Testing Right Flexion (S2) 5 Normal Extension (L3) 4+ Good+ Left Flexion (S2) 5 Normal Extension (L3) 4+ Good+ PT-OP-Q Treatments Start: 10/31/21 10:50 Freq: Status: Active Protocol: Document 12/26/21 09:06 AMB (Rec: 12/26/21 10:17 AMB [id number]) Therapeutic Exercises Standing Exercises step ups Standing Exercise Name 8 Reps/Minutes 2x10 Comments fwd and lateral 7 Standing Exercise Name fwd and lateral lunges Reps/Minutes 2x10 6 Standing Exercise Name squats Reps/Minutes full x10 5 Standing Exercise Name calf stretch Reps/Minutes 30x4 Comments on stair, on MAINOR 4 Standing Exercise Name heel raise Reps/Minutes 2x10 Comments on step PT-OP-T Assessment and Plan Start: 10/31/21 10:50 Freq: Status: Active Protocol: Document 12/26/21 09:06 AMB (Rec: 12/26/21 10:17 AMB [id number]) Physical Therapy Assessment Goals Two Impairment Activity tolerance Short Term Goal (STG) Rodney will sit at his desk with good ergonomics for 1 hour without knee pain. STG Duration MET Mcfp Goal (LTG) Rodney will ascend and descend a flight of stairs without knee pain. LTG Duration MET One Impairment Pain Short Term Goal (STG) Rodney will perform a full squat without knee pain. STG Duration MET Mcfp Goal (LTG) Rodney will be independent with a strengthening HEP that does not flare his pain. LTG Duration MET Assessment Summary Assessment Rodney is doing well, hasn't really been noticing knee pain lately, even with driving down to [place]. Did stairs, squats, lunges today all without knee pain. Encouraged him to continue with exercise , start going to the gym that he has a membership at and that his knee pain should continue to improve. Physical Therapy Plan Discharge Physical Therapy Discharge Reasons Goals Met
== END 2021-12-30 13:28 ==
LOC: PHYS 09:00
PROVIDERS: Family Provider Family Medicine; PCP Family Medicine; Referring Provider Family Medicine; Visit Provider Family Medicine
DX: M22.2X1 Patellofemoral disorders, right knee (principal); M22.2X2 Patellofemoral disorders, left knee
CPT/HCPCS: 97110; 97140; 97161